=== PATIENT | male | born 1965 | race Caucasian/White ===

== ENCOUNTER 2016-10-10 10:51 | Emergency (ER) | payer OTHER ==
[~2016-10-10 10:51] MED LIST: AMLODIPINE BESY10 MG; BACTRIM DS TABL1 TA1 PO; CAPTOPRIL PO; HCTZ PO; IBUPROFEN PO; LIPITOR40 MG; LOPRESSOR PO; METFORMIN HCL750 MG; PERCOCET5/325 PO; PRINIVIL20 M1; ST. JOSEPH ASPI81 M3; TYLENOL #3 PO
== END 2016-10-10 13:25 | disposition home or self-care (01) ==
LOC: SED 10:51
DX: R21 Rash and other nonspecific skin eruption (principal); I10 Essential (primary) hypertension
CPT/HCPCS: 96372; 99283; J1040